=== PATIENT | female | born 1955 | race Caucasian/White ===

== ENCOUNTER → 2021-02-12 | Outpatient (CLI) | payer MEDICARE ==
[2021-02-12 11:46] LABS: HEMATOCRIT 43.1 % (36.0-47.0); HEMOGLOBIN 13.3 g/dl (12.0-15.5); MEAN CORPUSCULAR HEMOGLOBIN 28.2 pg (27.0-33.0); MEAN CORPUSCULAR HGB CONC 30.9 g/dl (32.0-36.5); MEAN CORPUSCULAR VOLUME 91.5 fl (80.0-96.0); PLATELET COUNT, AUTOMATED 322 10^3/uL (150-450); RED BLOOD COUNT 4.71 10^6/uL (4.00-5.40); WHITE BLOOD COUNT 8.3 10^3/uL (4.0-10.0)
[2021-02-12 12:19] LABS: HEMOGLOBIN A1c 5.4 %
[2021-02-12 12:50] LABS: ALBUMIN 3.6 GM/DL (3.2-5.2); ALT/SGPT 11 U/L (12-78); BILIRUBIN,TOTAL 0.5 MG/DL (0.2-1.0); BLOOD UREA NITROGEN 18 MG/DL (7-18); CALCIUM LEVEL 9.4 MG/DL (8.8-10.2); CARBON DIOXIDE LEVEL 28 MEQ/L (21-32); CHLORIDE LEVEL 109 MEQ/L (98-107); CHOLESTEROL LEVEL 227 MG/DL (<200); CHOLESTEROL RISK RATIO 3.661 (<5); CREATININE FOR GFR 0.93 MG/DL (0.55-1.30); GLOMERULAR FILTRATION RATE > 60.0 (>45); GLUCOSE, FASTING 95 MG/DL (70-100); HDL CHOLESTEROL 62 MG/DL (>40); LDL CHOLESTEROL 146 MG/DL (<100); NON-HDL-C 165 MG/DL; POTASSIUM SERUM 4.8 MEQ/L (3.5-5.1); SODIUM LEVEL 142 MEQ/L (136-145); TOTAL 25(OH) VITAMIN D 15.1 NG/ML (30.0-100.0); TOTAL PROTEIN 7.4 GM/DL (6.4-8.2); TRIGLYCERIDES LEVEL 96 MG/DL (<150)
== END ==
LOC: M LAB 10:40
PROVIDERS: ATTEND Family Medicine
DX: I10 Essential (primary) hypertension (principal); R53.83 Other fatigue; E03.9 Hypothyroidism, unspecified

== ENCOUNTER → 2021-03-04 | Outpatient (CLI) | payer MEDICARE ==
[~2021-03-04] MED LIST: ALPR0.5T3 PO; FLUO20CA22 PO; LOMO2.5T PO; VITA50005 PO
--- NOTE | 2021-03-04 08:18 | REP ---
INDICATION: EPIGASTRIC PAIN, MASS COMPARISON: None TECHNIQUE: Axial noncontrast images of the abdomen with coronal and sagittal reformations. This CT examination was performed using the following dose reduction techniques: Automated exposure control, adjustment of mA and/or kv according to the patient's size, and use of iterative reconstruction technique. FINDINGS: The lung bases demonstrate minimal scarring in the right middle lobe and left lower lobe. There is aneurysmal dilatation of the visualized descending thoracic aorta measuring up to 5 cm diameter at the diaphragmatic hiatus. Liver demonstrates few scattered hypodensities measuring up to 14 mm likely representing small cysts. Spleen, pancreas, gallbladder, bilateral adrenal glands and kidneys are essentially normal for noncontrast evaluation. Visualized portions of the enteric system are unremarkable. No ascites. No free air. No obvious adenopathy. The abdominal aorta demonstrates atherosclerotic changes without aneurysm. Surrounding musculoskeletal structures demonstrate age-related changes. IMPRESSION: 1. Thoracic aortic aneurysm to the level of the hiatus measuring 5 cm diameter. Contrast-enhanced CT of the chest is recommended to evaluate the entire thoracic aorta. 2. Few small hepatic hypodensities likely representing benign hepatic cysts. <Electronically signed by Davian Khan > 03/04/21 0815
== END ==
LOC: M RAD 07:30
PROVIDERS: ATTEND Family Medicine
DX: R10.13 Epigastric pain (principal); K76.89 Other specified diseases of liver; I70.0 Atherosclerosis of aorta; I71.2 Thoracic aortic aneurysm, without rupture

== ENCOUNTER → 2021-04-11 | Outpatient (CLI) | payer MEDICARE ==
[2021-04-11 16:36] LABS: BLOOD UREA NITROGEN 16 MG/DL (7-18); CREATININE FOR GFR 0.96 MG/DL (0.55-1.30); GLOMERULAR FILTRATION RATE > 60.0 (>45)
== END ==
LOC: M LAB 14:17
PROVIDERS: ATTEND Surgery Vascular Surgery
DX: I71.2 Thoracic aortic aneurysm, without rupture (principal)

== ENCOUNTER → 2021-07-25 | Outpatient (REF) | payer MEDICARE ==
[~2021-07-25] MED LIST changes: +ERGO500029 PO; -VITA50005 PO
[2021-07-25 17:18] LABS: APPEARANCE, URINE CLEAR (CLEAR); BACTERIA, URINE AUTO NEGATIVE (NEGATIVE); BILIRUBIN, URINE AUTO NEGATIVE (NEGATIVE); BLOOD, URINE BLOOD 1+ (NEGATIVE); COLOR, URINE YELLOW (YELLOW); GLUCOSE, URINE (UA) AUTO NEGATIVE (NEGATIVE); KETONE, URINE AUTO TRACE mg/dL (NEGATIVE); LEUKOCYTE ESTERASE, URINE AUTO NEGATIVE (NEGATIVE); MUCUS, URINE SMALL (NEGATIVE); NITRITE, URINE AUTO NEGATIVE (NEGATIVE); PROTEIN, URINE AUTO NEGATIVE (NEGATIVE); RBC, URINE AUTO 1 /HPF (0-3); SPECIFIC GRAVITY URINE AUTO 1.004 (1.002-1.035); SQUAMOUS EPITHELIAL CELL UR AU 1 /HPF (0-6); UROBILINOGEN, URINE AUTO 0.2 mg/dL (0.0-2.0); WBC, URINE AUTO 1 /HPF (0-3)
== END ==
LOC: M LAB REF 16:36
PROVIDERS: ATTEND Surgery Vascular Surgery
DX: R32 Unspecified urinary incontinence (principal)

== ENCOUNTER → 2021-09-03 | Outpatient (CLI) | payer MEDICARE ==
--- NOTE | 2021-09-03 16:21 | REP ---
INDICATION: THORACIC AA COMPARISON: None. TECHNIQUE: Standard helical technique without intravenous contrast FINDINGS: There is no mediastinal or hilar adenopathy. There are no pleural or pericardial effusions. A stent graft is seen in the descending aortic arch and descending thoracic aorta within aneurysmal dilatation. The maximal dimension of the descending thoracic aorta is approximately 6.4 cm. Since no intravenous contrast was administered I cannot comment on whether not there may be an endoleak. The imaged osseous structures are within normal limits. Evaluation of the lung sidhu shows no abnormal nodules, masses, or opacities. IMPRESSION: Thoracic aortic aneurysmal dilatation with stent graft placement as described above. If an endoleak is of clinical concern then a contrast-enhanced examination would be necessary. Since I have no priors for comparison I cannot comment on whether not this aneurysm is increased or decreased or has remained the same. <Electronically signed by Bakari Hall > 09/03/21 [id number]
--- NOTE | 2021-09-03 16:27 | REP ---
INDICATION: THORACIC AA. COMPARISON: None. TECHNIQUE: Standard helical technique without intravenous contrast FINDINGS: There is a suprarenal abdominal aortic aneurysm which begins proximal to the celiac axis and has a maximal AP dimension of 5.4 cm. This has a length of approximately 11 cm. The infrarenal abdominal aorta is seen with circumferential calcific atherosclerotic change. There is no para-aortic adenopathy. There is no abnormal para-aortic fluid or soft tissue density. In the posterior segment of the right lobe of the liver there is 1.6 cm sized cyst. In the anterior segment adjacent to the gallbladder fossa there is an additional cyst which measures 1 cm. The gallbladder, spleen, pancreas, adrenal glands, and kidneys are within normal limits. There is no evidence of a significant bowel or mesenteric abnormality on this limited exam. There is no free fluid or free air. There is no evidence of a mass or adenopathy. Bone window technique throughout the exam shows the osseous structures to be within normal limits for the patient's age. IMPRESSION: There is no evidence of acute disease. Abdominal aortic aneurysm as described above. Other findings as described above. <Electronically signed by Bakari Hall > 09/03/21 [id number]
== END ==
LOC: M RAD 15:43
PROVIDERS: ATTEND Surgery Vascular Surgery
DX: I71.2 Thoracic aortic aneurysm, without rupture (principal); K76.89 Other specified diseases of liver; I71.4 Abdominal aortic aneurysm, without rupture; Z95.828 Presence of other vascular implants and grafts

== ENCOUNTER → 2022-03-18 | Outpatient (CLI) | payer MEDICARE | LOC: M RAD 12:53 | PROVIDERS: ATTEND Surgery Vascular Surgery | DX: I71.2 Thoracic aortic aneurysm, without rupture (principal) ==

== ENCOUNTER 2022-05-30 20:19 | Observation (INO) | payer MEDICARE ==
[~2022-05-30] VITALS: Ht 170.2 cm; Wt 91.4 kg
[2022-05-30] MEDS ORDERED: ALPR0.25 PO (20:49)
[2022-05-30] MEDS ORDERED: ASPI81CH48 PO (20:49)
[2022-05-30] MEDS ORDERED: METO1TAB87 PO (20:49)
[2022-05-30] MEDS ORDERED: ATOR1TAB21 PO (20:49)
[2022-05-30] MEDS: METOPROLOL TART 25 MG TABLET PO SCH (21:00)
[2022-05-30 21:01] LABS: BASO # 0.1 10^3/uL (0.0-0.2); BASO % 1.1 % (0.0-1.0); EOS # 0.2 10^3/uL (0.0-0.5); EOS % 2.4 % (0.0-3.0); HEMATOCRIT 39.2 % (36.0-47.0); HEMOGLOBIN 12.6 g/dl (12.0-15.5); LYMPH # 3.2 10^3/uL (1.5-5.0); LYMPH % 37.5 % (24.0-44.0); MEAN CORPUSCULAR HEMOGLOBIN 28.2 pg (27.0-33.0); MEAN CORPUSCULAR HGB CONC 32.1 g/dl (32.0-36.5); MEAN CORPUSCULAR VOLUME 87.7 fl (80.0-96.0); MONO # 0.5 10^3/uL (0.0-0.8); MONO % 6.1 % (2.0-8.0); NEUTROPHILS # 4.5 10^3/uL (1.5-8.5); NEUTROPHILS % 52.5 % (36.0-66.0); PLATELET COUNT, AUTOMATED 263 10^3/uL (150-450); RED BLOOD COUNT 4.47 10^6/uL (4.00-5.40); WHITE BLOOD COUNT 8.5 10^3/uL (4.0-10.0)
[2022-05-30 21:13] LABS: INR 0.97; PROTHROMBIN TIME 13.3 SECONDS (12.7-14.5)
[2022-05-30 21:14] LABS: PARTIAL THROMBOPLASTIN TIME 35.8 SECONDS (25.9-37.0)
[2022-05-30 21:36] LABS: CALCIUM LEVEL 9.6 MG/DL (8.8-10.2); CREATININE FOR GFR 1.09 MG/DL (0.55-1.30)
[2022-05-30 21:40] LABS: CK-MB VALUE MASS 1.3 NG/ML (<3.6); MB/CK RELATIVE INDEX 1.37 (< OR =4)
[2022-05-30] MEDS ORDERED: ISOVUE-370 76% 100ML VIAL As Ordered ONE (22:15)
[2022-05-30 22:35] LABS: CK-MB VALUE MASS 1.2 NG/ML (<3.6); MB/CK RELATIVE INDEX 1.17 (< OR =4)
[2022-05-30 23:41] LABS: RSV AMPLIFICATION NEGATIVE (NEGATIVE)
[2022-05-30] MEDS ORDERED: ASPIRIN 81 MG CHEW TABLET PO ONE (23:55)
[2022-05-31] MEDS ORDERED: ADVI200T17 PO (00:33)
[2022-05-31] MEDS ORDERED: HOME MED LIST COMPLETE! XX SCH (00:35)
[2022-05-31] MEDS ORDERED: ATORVASTATIN 20 MG TAB PO ONE (04:00)
[2022-05-31] MEDS ORDERED: ASPIRIN 81 MG CHEW TABLET PO SCH (09:00)
[2022-05-31] MEDS ORDERED: ATORVASTATIN 20 MG TAB PO SCH ×2 (09:00→21:00)
[2022-05-31] MEDS: ASPIRIN 81 MG CHEW TABLET PO SCH (09:15)
[2022-05-31] MEDS: METOPROLOL TART 25 MG TABLET PO SCH ×2 (09:15→22:18)
[2022-05-31 12:05] VITALS: BP 142/84
[2022-05-31] MEDS ORDERED: FUROSEMIDE 40MG/4ML VIAL (J1940) IV ONE (17:40)
[2022-05-31] MEDS ORDERED: PROHANCE 279.3MG/ML 5ML VIAL As Ordered ONE (18:33)
[2022-05-31 19:49] VITALS: BP 115/71
[2022-05-31] MEDS: ALPRAZolam 0.25 MG TAB PO SCH (22:19)
[2022-06-01] MEDS ORDERED: ONDANSETRON 4MG ORAL DISINTEGRATING TAB PO PRN (02:25)
[2022-06-01 04:09] VITALS: BP 139/82
[2022-06-01 07:31] LABS: HEMOGLOBIN 12.3 g/dl (12.0-15.5); MEAN CORPUSCULAR HEMOGLOBIN 27.7 pg (27.0-33.0); MEAN CORPUSCULAR HGB CONC 31.5 g/dl (32.0-36.5); MEAN CORPUSCULAR VOLUME 87.8 fl (80.0-96.0); PLATELET COUNT, AUTOMATED 229 10^3/uL (150-450); RED BLOOD COUNT 4.44 10^6/uL (4.00-5.40); WHITE BLOOD COUNT 7.9 10^3/uL (4.0-10.0)
[2022-06-01 08:00] LABS: ALBUMIN 3.6 GM/DL (3.2-5.2); BILIRUBIN,TOTAL 0.7 MG/DL (0.2-1.0); CALCIUM LEVEL 9.6 MG/DL (8.8-10.2); CREATININE FOR GFR 1.09 MG/DL (0.55-1.30); POTASSIUM SERUM 3.9 MEQ/L (3.5-5.1); TOTAL PROTEIN 6.9 GM/DL (6.4-8.2)
[2022-06-01 08:51] VITALS: BP_SYST 119; BP_SYST 130; BP_SYST 139; BP_DIAS 69; BP_DIAS 75; BP_DIAS 85
[2022-06-01] MEDS: ASPIRIN 81 MG CHEW TABLET PO SCH (10:01)
[2022-06-01 10:03] VITALS: BP 156/78
[2022-06-01] MEDS: METOPROLOL TART 25 MG TABLET PO SCH (10:03)
[2022-06-01] MEDS: ALPRAZolam 0.25 MG TAB PO SCH (10:03)
[2022-06-10] MEDS ORDERED: ACET325C5 PO (09:56)
[2022-06-10] MEDS ORDERED: TREL1AER PO (10:21)
== END 2022-06-01 18:00 | disposition home or self-care (01) ==
LOC: M ED 20:19 → M ED INP 20:20 → ENRESERV 05-31 08:15 → M 4MAIN 05-31 12:02
PROVIDERS: ADMIT Internal Medicine; ATTEND Internal Medicine
DX: H53.9 Unspecified visual disturbance (principal); G45.9 Transient cerebral ischemic attack, unspecified; I16.0 Hypertensive urgency; R26.89 Other abnormalities of gait and mobility; R00.2 Palpitations; I10 Essential (primary) hypertension; I73.9 Peripheral vascular disease, unspecified; J44.9 Chronic obstructive pulmonary disease, unspecified; F41.9 Anxiety disorder, unspecified; Z79.899 Other long term (current) drug therapy
CPT/HCPCS: 36415; 70450; 70544; 70551; 70552; 71045; 71275; 74174; 80048; 80053; 82550; 82553; 83880; 84484; 85025; 85027; 85610; 85730; 87631; 93005; 93041; 93880; 94760; 96374; 97161; 97530; 99285; A9576; G0378; J1940; Q9967

== ENCOUNTER → 2022-08-20 | Outpatient (CLI) | payer MEDICARE ==
[~2022-08-20] MED LIST changes: +ACET325C5 PO; +ADVI200T17 PO; +ALPR0.25 PO; +ASPI81CH48 PO; +ATOR1TAB21 PO; +METO1TAB87 PO; +TREL1AER PO
[2022-08-20 14:49] LABS: HEMATOCRIT 39.4 % (36.0-47.0); MEAN CORPUSCULAR HGB CONC 30.5 g/dl (32.0-36.5); MEAN CORPUSCULAR VOLUME 92.1 fl (80.0-96.0); PLATELET COUNT, AUTOMATED 277 10^3/uL (150-450); RED BLOOD COUNT 4.28 10^6/uL (4.00-5.40); WHITE BLOOD COUNT 7.5 10^3/uL (4.0-10.0)
[2022-08-20 15:08] LABS: HEMOGLOBIN A1c 5.9 %
[2022-08-20 16:00] LABS: ALBUMIN 3.5 GM/DL (3.2-5.2); BILIRUBIN,TOTAL 0.6 MG/DL (0.2-1.0); CALCIUM LEVEL 9.2 MG/DL (8.8-10.2); CHOLESTEROL RISK RATIO 2.634 (<5); CREATININE FOR GFR 0.99 MG/DL (0.55-1.30); GLOMERULAR FILTRATION RATE 59.2 (>45); POTASSIUM SERUM 4.7 MEQ/L (3.5-5.1); THYROID STIMULATING HORMONE 1.49 uIU/ML (0.358-3.740); TOTAL 25(OH) VITAMIN D 49.7 NG/ML (30.0-100.0); TOTAL PROTEIN 6.9 GM/DL (6.4-8.2)
== END ==
LOC: M EKG 12:49
PROVIDERS: ATTEND Family Medicine
DX: D64.9 Anemia, unspecified (principal); J44.9 Chronic obstructive pulmonary disease, unspecified; I10 Essential (primary) hypertension; Z79.899 Other long term (current) drug therapy

== ENCOUNTER → 2023-02-24 | Outpatient (CLI) | payer MEDICARE ==
[2023-02-24 16:02] LABS: HEMATOCRIT 41.6 % (36.0-47.0); HEMOGLOBIN 12.9 g/dl (12.0-15.5); MEAN CORPUSCULAR HEMOGLOBIN 27.9 pg (27.0-33.0); PLATELET COUNT, AUTOMATED 199 10^3/uL (150-450); RED BLOOD COUNT 4.62 10^6/uL (4.00-5.40); WHITE BLOOD COUNT 7.9 10^3/uL (4.0-10.0)
[2023-02-24 16:30] LABS: ALBUMIN 3.5 G/DL (3.2-5.2); ALKALINE PHOSPHATASE 98 U/L (46-116); ALT/SGPT 9 U/L (7.0-40); AST/SGOT 21 U/L (<34); BILIRUBIN,TOTAL 0.7 MG/DL (0.3-1.2); BLOOD UREA NITROGEN 16 MG/DL (9-23); CALCIUM LEVEL 8.8 MG/DL (8.3-10.6); CARBON DIOXIDE LEVEL 26 MMOL/L (20-31); CHLORIDE LEVEL 108 MMOL/L (98-107); CHOLESTEROL LEVEL 139 MG/DL (<200); CREATININE FOR GFR 0.97 MG/DL (0.55-1.30); GLOMERULAR FILTRATION RATE > 60.0 (>45); GLUCOSE, FASTING 75 MG/DL (74-106); HDL CHOLESTEROL 53.4 MG/DL (>40); LDL CHOLESTEROL 68.8 MG/DL (<100); NON-HDL-C 85.6 MG/DL; SODIUM LEVEL 143 MMOL/L (136-145); THYROID STIMULATING HORMONE 1.766 uIU/ML (0.55-4.78); TOTAL PROTEIN 6.8 G/DL (5.7-8.2); TRIGLYCERIDES LEVEL 84 MG/DL (<150)
[2023-02-24 16:31] LABS: TOTAL 25(OH) VITAMIN D 34.6 NG/ML (20.0-100.0)
[2023-02-24 16:42] LABS: HEMOGLOBIN A1c 5.5 % (4.0-6.0)
== END ==
LOC: M RAD 13:54
PROVIDERS: ATTEND Family Medicine
DX: I10 Essential (primary) hypertension (principal); R53.83 Other fatigue; I48.91 Unspecified atrial fibrillation

== ENCOUNTER → 2023-06-18 | Outpatient (CLI) | payer MEDICARE | LOC: M RAD 10:07 | PROVIDERS: ATTEND Physician Assistant | DX: Z86.79 Personal history of other diseases of the circulatory system (principal); Z98.890 Other specified postprocedural states; I71.40 Abdominal aortic aneurysm, without rupture, unspecified; I74.09 Other arterial embolism and thrombosis of abdominal aorta ==

== ENCOUNTER → 2023-07-04 | Outpatient (CLI) | payer MEDICARE ==
[2023-07-04 12:59] LABS: BLOOD UREA NITROGEN 16 MG/DL (9-23); CREATININE FOR GFR 0.94 MG/DL (0.55-1.30); GLOMERULAR FILTRATION RATE > 60.0 (>39)
== END ==
LOC: M LAB 11:58
PROVIDERS: ATTEND Physician Assistant
DX: I71.20 Thoracic aortic aneurysm, without rupture, unspecified (principal)

== ENCOUNTER → 2023-07-10 | Outpatient (CLI) | payer MEDICARE ==
[~2023-07-10] MED LIST changes: +ISOVUE-370 76% 100ML VIAL As Ordered ONE
== END ==
LOC: M RAD 15:31
PROVIDERS: ATTEND Physician Assistant
DX: I71.20 Thoracic aortic aneurysm, without rupture, unspecified (principal)
CPT/HCPCS: 71260; Q9967

== ENCOUNTER 2023-08-10 07:43 | Day surgery (SDC) | payer MEDICARE ==
[~2023-08-10] VITALS: Ht 167.6 cm; Wt 96.6 kg
[~2023-08-10 07:43] MED LIST changes: -ISOVUE-370 76% 100ML VIAL As Ordered ONE; +NS 1,000 ML IV ONE
[2023-08-10] MEDS ORDERED: LIDOCAINE 2% 100MG/5ML SDV (FOR ANES.) As Ordered ONE (08:11)
[2023-08-10] MEDS ORDERED: propofoL 200 MG/20 ML VIAL As Ordered ONE (08:11)
[2023-08-10 09:31] VITALS: TEMP 98
[2023-08-10 09:48] VITALS: BP 132/97; O2SAT 99
== END 2023-08-10 10:00 | disposition home or self-care (01) ==
LOC: M OPP 07:43
PROVIDERS: ATTEND Internal Medicine Gastroenterology
DX: Z12.11 Encounter for screening for malignant neoplasm of colon (principal); K64.0 First degree hemorrhoids; K57.30 Diverticulosis of large intestine without perforation or abscess without bleeding; Z87.891 Personal history of nicotine dependence; I48.91 Unspecified atrial fibrillation; Z86.73 Personal history of transient ischemic attack (TIA), and cerebral infarction without residual deficits; Z79.02 Long term (current) use of antithrombotics/antiplatelets; Z79.52 Long term (current) use of systemic steroids; Z79.82 Long term (current) use of aspirin; Z79.899 Other long term (current) drug therapy

== ENCOUNTER 2024-01-03 13:05 | Emergency (ER) | payer MEDICARE ==
[~2024-01-03] VITALS: Ht 172.7 cm; Wt 97.2 kg
[~2024-01-03 13:05] MED LIST changes: -NS 1,000 ML IV ONE
[2024-01-03] MEDS: METOPROLOL 5 MG/5 ML VIAL IV PRN (14:31)
[2024-01-03] MEDS: METOPROLOL TART 25 MG TABLET PO ONE (14:34)
[2024-01-03 14:58] VITALS: BP 143/68
[2024-01-03 15:37] LABS: BASO # 0.1 10^3/uL (0.0-0.2); BASO % 1.1 % (0.0-1.0); EOS # 0.2 10^3/uL (0.0-0.5); HEMATOCRIT 36.7 % (36.0-47.0); HEMOGLOBIN 11.7 g/dl (12.0-15.5); LYMPH # 2.1 10^3/uL (1.5-5.0); LYMPH % 26.2 % (24.0-44.0); MEAN CORPUSCULAR HEMOGLOBIN 28.5 pg (27.0-33.0); MEAN CORPUSCULAR HGB CONC 31.9 g/dl (32.0-36.5); MEAN CORPUSCULAR VOLUME 89.3 fl (80.0-96.0); MONO # 0.6 10^3/uL (0.0-0.8); MONO % 7.3 % (2.0-8.0); NEUTROPHILS # 5.1 10^3/uL (1.5-8.5); NEUTROPHILS % 63.2 % (36.0-66.0); PLATELET COUNT, AUTOMATED 224 10^3/uL (150-450); RED BLOOD COUNT 4.11 10^6/uL (4.00-5.40); WHITE BLOOD COUNT 8.1 10^3/uL (4.0-10.0)
[2024-01-03 15:55] LABS: INR 0.99; PARTIAL THROMBOPLASTIN TIME 35.3 SECONDS (24.8-34.2); PROTHROMBIN TIME 12.8 SECONDS (12.5-14.5)
[2024-01-03 16:09] LABS: LIPASE 30 U/L (12-53)
[2024-01-03 16:11] LABS: ALBUMIN 3.3 G/DL (3.2-5.2); ALKALINE PHOSPHATASE 105 U/L (46-116); ALT/SGPT 9 U/L (7.0-40); AST/SGOT 17 U/L (<34); BILIRUBIN,DIRECT 0.1 MG/DL (<0.4); BILIRUBIN,TOTAL 0.4 MG/DL (0.3-1.2); BLOOD UREA NITROGEN 23 MG/DL (9-23); CALCIUM LEVEL 8.2 MG/DL (8.3-10.6); CARBON DIOXIDE LEVEL 28 MMOL/L (20-31); CHLORIDE LEVEL 109 MMOL/L (98-107); CK-MB VALUE MASS < 1.0 NG/ML (<3.6); CREATININE FOR GFR 0.95 MG/DL (0.55-1.30); GLOMERULAR FILTRATION RATE > 60.0 (>39); GLUCOSE, FASTING 78 MG/DL (74-106); MAGNESIUM LEVEL 1.8 MG/DL (1.8-2.4); POTASSIUM SERUM 4.6 MMOL/L (3.5-5.1); SODIUM LEVEL 141 MMOL/L (136-145)
[2024-01-03 16:15] LABS: FREE T4 1.09 NG/DL (0.89-1.76)
[2024-01-03 16:17] LABS: CPK CREATINE PHOSPHOKINASE 49 U/L (34-145); MB/CK RELATIVE INDEX 2.04 (< OR =4)
[2024-01-03] MEDS ORDERED: METO25TA4 PO (16:51)
[2024-01-03] MEDS ORDERED: ELIQ5TAB PO (16:51)
[2024-01-03] MEDS: APIXABAN 5 MG TAB (ELIQUIS) PO ONE (17:07)
[2024-01-03 17:11] VITALS: BP 143/85; TEMP 97.2; O2SAT 98
== END 2024-01-03 17:10 | disposition home or self-care (01) ==
LOC: M ED 13:05
DX: I48.91 Unspecified atrial fibrillation (principal); I10 Essential (primary) hypertension; J45.909 Unspecified asthma, uncomplicated; I71.40 Abdominal aortic aneurysm, without rupture, unspecified; Z86.73 Personal history of transient ischemic attack (TIA), and cerebral infarction without residual deficits; Z79.82 Long term (current) use of aspirin; Z79.899 Other long term (current) drug therapy

== ENCOUNTER → 2024-02-09 | Outpatient (CLI) | payer MEDICARE ==
[~2024-02-09] MED LIST changes: +ELIQ5TAB PO; +METO25TA4 PO
[2024-02-09 12:55] LABS: BASO # 0.1 10^3/uL (0.0-0.2); BASO % 1.3 % (0.0-1.0); EOS # 0.1 10^3/uL (0.0-0.5); EOS % 1.9 % (0.0-3.0); HEMATOCRIT 39.9 % (36.0-47.0); HEMOGLOBIN 12.7 g/dl (12.0-15.5); LYMPH # 1.8 10^3/uL (1.5-5.0); LYMPH % 23.7 % (24.0-44.0); MEAN CORPUSCULAR HEMOGLOBIN 28.3 pg (27.0-33.0); MEAN CORPUSCULAR HGB CONC 31.8 g/dl (32.0-36.5); MEAN CORPUSCULAR VOLUME 89.1 fl (80.0-96.0); MONO # 0.4 10^3/uL (0.0-0.8); MONO % 5.4 % (2.0-8.0); NEUTROPHILS % 67.4 % (36.0-66.0); PLATELET COUNT, AUTOMATED 252 10^3/uL (150-450); RED BLOOD COUNT 4.48 10^6/uL (4.00-5.40); WHITE BLOOD COUNT 7.4 10^3/uL (4.0-10.0)
[2024-02-09 13:24] LABS: CALCIUM LEVEL 8.8 MG/DL (8.3-10.6); CREATININE FOR GFR 0.99 MG/DL (0.55-1.30); POTASSIUM SERUM 5.2 MMOL/L (3.5-5.1)
== END ==
LOC: M LAB 11:42
PROVIDERS: ATTEND Physician Assistant
DX: R06.09 Other forms of dyspnea (principal)

== ENCOUNTER → 2024-05-12 | Outpatient (CLI) | payer MEDICARE ==
[~2024-05-12] MED LIST changes: +FLUO-365 PO; -FLUO20CA22 PO
[2024-05-12 13:23] LABS: BASO # 0.1 10^3/uL (0.0-0.2); BASO % 1.1 % (0.0-1.0); EOS # 0.2 10^3/uL (0.0-0.5); EOS % 2.5 % (0.0-3.0); HEMATOCRIT 38.7 % (36.0-47.0); HEMOGLOBIN 12.1 g/dl (12.0-15.5); LYMPH # 1.8 10^3/uL (1.5-5.0); LYMPH % 22.9 % (24.0-44.0); MEAN CORPUSCULAR HEMOGLOBIN 28.3 pg (27.0-33.0); MEAN CORPUSCULAR HGB CONC 31.3 g/dl (32.0-36.5); MEAN CORPUSCULAR VOLUME 90.4 fl (80.0-96.0); MONO # 0.5 10^3/uL (0.0-0.8); MONO % 5.7 % (2.0-8.0); NEUTROPHILS # 5.4 10^3/uL (1.5-8.5); NEUTROPHILS % 67.5 % (36.0-66.0); PLATELET COUNT, AUTOMATED 321 10^3/uL (150-450); RED BLOOD COUNT 4.28 10^6/uL (4.00-5.40)
[2024-05-12 13:54] LABS: ALBUMIN 3.6 G/DL (3.2-5.2); ALKALINE PHOSPHATASE 120 U/L (46-116); ALT/SGPT 10 U/L (7.0-40); AST/SGOT 14 U/L (<34); BILIRUBIN,TOTAL 0.7 MG/DL (0.3-1.2); BLOOD UREA NITROGEN 14 MG/DL (9-23); CALCIUM LEVEL 9.7 MG/DL (8.3-10.6); CARBON DIOXIDE LEVEL 29 MMOL/L (20-31); CHLORIDE LEVEL 108 MMOL/L (98-107); GLOMERULAR FILTRATION RATE > 60.0 (>39); GLUCOSE, FASTING 94 MG/DL (74-106); POTASSIUM SERUM 4.4 MMOL/L (3.5-5.1); SODIUM LEVEL 143 MMOL/L (136-145); TOTAL PROTEIN 6.8 G/DL (5.7-8.2)
[2024-05-12 13:56] LABS: FREE T4 1.22 NG/DL (0.89-1.76); THYROID STIMULATING HORMONE 2.389 uIU/ML (0.55-4.78)
== END ==
LOC: M LAB 12:42
PROVIDERS: ATTEND Internal Medicine Pulmonary Disease
DX: R06.00 Dyspnea, unspecified (principal); R60.0 Localized edema

== ENCOUNTER → 2024-05-16 | Outpatient (CLI) | payer MEDICARE ==
[~2024-05-16] MED LIST changes: +ISOVUE-370 76% 100ML VIAL As Ordered ONE
== END ==
LOC: M PLAIMG 09:21 → M RAD 09:21
PROVIDERS: ATTEND Internal Medicine Pulmonary Disease
DX: R06.00 Dyspnea, unspecified (principal); R60.0 Localized edema; R09.02 Hypoxemia; J98.11 Atelectasis; I51.7 Cardiomegaly; I25.10 Atherosclerotic heart disease of native coronary artery without angina pectoris; I74.11 Embolism and thrombosis of thoracic aorta; I71.23 Aneurysm of the descending thoracic aorta, without rupture
CPT/HCPCS: 71275; Q9967

== ENCOUNTER → 2024-06-29 | Outpatient (CLI) | payer MEDICARE ==
[~2024-06-29] MED LIST changes: -ISOVUE-370 76% 100ML VIAL As Ordered ONE
== END ==
LOC: M RAD 11:51
PROVIDERS: ATTEND Family Medicine
DX: M16.12 Unilateral primary osteoarthritis, left hip (principal)

== ENCOUNTER → 2024-07-27 | Outpatient (CLI) | payer MEDICARE | LOC: M RAD 07:29 | PROVIDERS: ATTEND Surgery Vascular Surgery | DX: I71.40 Abdominal aortic aneurysm, without rupture, unspecified (principal) ==

== ENCOUNTER 2024-11-25 15:18 | Inpatient (IN) | payer MEDICARE ==
[~2024-11-25] VITALS: Ht 172.7 cm; Wt 97.3 kg
[2024-11-25] MEDS ORDERED: METO1TAB87 PO (15:52)
[2024-11-25] MEDS ORDERED: AMLO1TAB24 PO (15:52)
[2024-11-25] MEDS ORDERED: AZIT-12 PO (15:52)
[2024-11-25] MEDS ORDERED: METOPROLOL TART 25 MG TABLET PO ONE (16:10)
[2024-11-25] MEDS: METOPROLOL 5 MG/5 ML VIAL IV SCH (16:10)
[2024-11-25 16:35] LABS: BASO # 0.1 10^3/uL (0.0-0.2); BASO % 0.9 % (0.0-1.0); EOS % 0.3 % (0.0-3.0); HEMATOCRIT 41.5 % (36.0-47.0); HEMOGLOBIN 12.9 g/dl (12.0-15.5); LYMPH # 1.5 10^3/uL (1.5-5.0); LYMPH % 20.2 % (24.0-44.0); MEAN CORPUSCULAR HGB CONC 31.1 g/dl (32.0-36.5); MONO # 0.7 10^3/uL (0.0-0.8); NEUTROPHILS # 5.1 10^3/uL (1.5-8.5); NEUTROPHILS % 68.3 % (36.0-66.0); PLATELET COUNT, AUTOMATED 217 10^3/uL (150-450); RED BLOOD COUNT 4.61 10^6/uL (4.00-5.40); WHITE BLOOD COUNT 7.4 10^3/uL (4.0-10.0)
[2024-11-25] MEDS: DIGOXIN INJ 0.5 MG/2 ML AMP IV ONE (17:06)
[2024-11-25 18:17] LABS: CALCIUM LEVEL 8.9 MG/DL (8.3-10.6); CREATININE FOR GFR 0.99 MG/DL (0.55-1.30); GLOMERULAR FILTRATION RATE 58.9 (>39); POTASSIUM SERUM 4.9 MMOL/L (3.5-5.1); THYROID STIMULATING HORMONE 1.298 uIU/ML (0.55-4.78)
[2024-11-25] MEDS ORDERED: OMEP-173 PO (18:19)
[2024-11-25] MEDS ORDERED: HOME MED LIST COMPLETE! XX SCH (18:20)
[2024-11-25] MEDS ORDERED: ACETAMINOPHEN 325 MG TAB PO PRN (18:50)
[2024-11-25] MEDS ORDERED: LEVALBUTEROL 1.25MG 0.5ML CONCENTRATE NEB NEB PRN (19:25)
[2024-11-25] MEDS: DIGOXIN INJ 0.5 MG/2 ML AMP IV STA (19:45)
[2024-11-25] MEDS: METOPROLOL TART 25 MG TABLET PO SCH (19:45)
[2024-11-25 20:45] LABS: INR 0.96; PROTHROMBIN TIME 13.1 SECONDS (12.5-14.5)
[2024-11-25 20:50] LABS: MAGNESIUM LEVEL 1.8 MG/DL (1.8-2.4); PHOSPHORUS LEVEL 3.7 MG/DL (2.4-5.1)
[2024-11-25] MEDS ORDERED: amLODIPine 5 MG TAB PO SCH (21:00)
[2024-11-25] MEDS: REMDESIVIR 200 MG in NS 250 ML IV ONE (21:19)
[2024-11-25] MEDS: OMEPRAZOLE 20MG CAP PO SCH (21:51)
[2024-11-25 22:22] LABS: KETONE, URINE AUTO RFX TRACE mg/dL (NEGATIVE); MUCUS, URINE RFX SMALL (NEGATIVE); RBC, URINE AUTO RFX 4 /HPF (0-3); SQUAM EPITHELIAL CELL UR AURFX 7 /HPF (0-6)
[2024-11-25 22:48] VITALS: BP 143/73; TEMP 97.9; O2SAT 94
[2024-11-25 23:12] LABS: LEUKOCYTE ESTERASE UR AUTO RFX 1+ (NEGATIVE); NITRITE, URINE AUTO RFX POSITIVE (NEGATIVE); WBC, URINE AUTO RFX 39 /HPF (0-3)
[2024-11-25 23:58] VITALS: BP 125/54; TEMP 97.6; O2SAT 95
[2024-11-26 04:44] VITALS: BP 126/61; TEMP 98.3; O2SAT 100
[2024-11-26] MEDS: CEPACOL LOZENGE PO PRN (05:03)
[2024-11-26 05:56] LABS: HEMATOCRIT 36.9 % (36.0-47.0); HEMOGLOBIN 11.6 g/dl (12.0-15.5); MEAN CORPUSCULAR HEMOGLOBIN 27.8 pg (27.0-33.0); MEAN CORPUSCULAR HGB CONC 31.4 g/dl (32.0-36.5); MEAN CORPUSCULAR VOLUME 88.3 fl (80.0-96.0); PLATELET COUNT, AUTOMATED 203 10^3/uL (150-450); RED BLOOD COUNT 4.18 10^6/uL (4.00-5.40); WHITE BLOOD COUNT 7.2 10^3/uL (4.0-10.0)
[2024-11-26 06:29] LABS: ALBUMIN 3.5 G/DL (3.2-5.2); ALKALINE PHOSPHATASE 105 U/L (35-104); ALT/SGPT 13 U/L (7.0-40); AST/SGOT 37 U/L (<34); BILIRUBIN,TOTAL 0.5 MG/DL (0.3-1.2); BLOOD UREA NITROGEN 18 MG/DL (9-23); CALCIUM LEVEL 8.9 MG/DL (8.3-10.6); CARBON DIOXIDE LEVEL 28 MMOL/L (20-31); CHLORIDE LEVEL 101 MMOL/L (98-107); CREATININE FOR GFR 0.96 MG/DL (0.55-1.30); GLOMERULAR FILTRATION RATE > 60.0 (>39); GLUCOSE, FASTING 94 MG/DL (74-106); POTASSIUM SERUM 4.1 MMOL/L (3.5-5.1); SODIUM LEVEL 141 MMOL/L (136-145); TOTAL PROTEIN 7.2 G/DL (5.7-8.2)
[2024-11-26 07:58] VITALS: BP 127/66; TEMP 99.3; O2SAT 98
[2024-11-26] MEDS: AZITHROMYCIN 250MG TABLET PO SCH (09:25)
[2024-11-26] MEDS: ASPIRIN 81MG CHEW TABLET PO SCH (09:25)
[2024-11-26] MEDS: CEFDINIR 300 MG CAP (OMNICEF) PO SCH (09:25)
[2024-11-26] MEDS: ATORVASTATIN 20 MG TAB PO SCH (09:25)
[2024-11-26 12:08] VITALS: BP 111/65; TEMP 97.4; O2SAT 99
[2024-11-26 16:00] VITALS: BP 115/64; TEMP 97.6; O2SAT 99
[2024-11-26 19:26] VITALS: BP 144/68; TEMP 97.9; O2SAT 99
[2024-11-26] MEDS: REMDESIVIR 100 MG in NS 100 ML IV SCH (20:09)
[2024-11-26] MEDS: METOPROLOL TART 25 MG TABLET PO SCH (20:09)
[2024-11-26 23:01] VITALS: BP 124/71; TEMP 98; O2SAT 98
[2024-11-27] VITALS (12 sets, daily range): BP systolic 108–161; BP diastolic 66–93; TEMP 96.6–98.5; O2SAT 96–100
[2024-11-27 05:26] LABS: HEMATOCRIT 34.8 % (36.0-47.0); HEMOGLOBIN 10.9 g/dl (12.0-15.5); MEAN CORPUSCULAR HEMOGLOBIN 27.5 pg (27.0-33.0); MEAN CORPUSCULAR HGB CONC 31.3 g/dl (32.0-36.5); MEAN CORPUSCULAR VOLUME 87.9 fl (80.0-96.0); PLATELET COUNT, AUTOMATED 191 10^3/uL (150-450); RED BLOOD COUNT 3.96 10^6/uL (4.00-5.40); WHITE BLOOD COUNT 5.5 10^3/uL (4.0-10.0)
[2024-11-27] MEDS: METOPROLOL 5 MG/5 ML VIAL IV SCH (05:44)
[2024-11-27 05:48] LABS: ALBUMIN 3.2 G/DL (3.2-5.2); ALKALINE PHOSPHATASE 91 U/L (35-104); ALT/SGPT 12 U/L (7.0-40); AST/SGOT 34 U/L (<34); BILIRUBIN,TOTAL 0.4 MG/DL (0.3-1.2); BLOOD UREA NITROGEN 21 MG/DL (9-23); CALCIUM LEVEL 8.6 MG/DL (8.3-10.6); CARBON DIOXIDE LEVEL 26 MMOL/L (20-31); CHLORIDE LEVEL 105 MMOL/L (98-107); CREATININE FOR GFR 0.93 MG/DL (0.55-1.30); GLOMERULAR FILTRATION RATE > 60.0 (>39); GLUCOSE, FASTING 85 MG/DL (74-106); SODIUM LEVEL 143 MMOL/L (136-145); TOTAL PROTEIN 6.5 G/DL (5.7-8.2)
[2024-11-27 07:13] LABS: MAGNESIUM LEVEL 1.7 MG/DL (1.8-2.4)
[2024-11-27] MEDS: MAGNESIUM OXIDE 400MG TAB (MAG-OX) PO SCH (08:28)
[2024-11-27] MEDS: DIGOXIN INJ 0.5 MG/2 ML AMP IV ONE (08:28)
[2024-11-27] MEDS: MAG SULF 1GM/100ML (MAG RUN) 1 GM in IV 1 EA IV SCH (08:28)
[2024-11-27] MEDS: DIGOXIN 0.25 MG TAB PO ONE ×2 (14:27→21:05)
[2024-11-27] MEDS: LEVALBUTEROL HFA 45MCG/ACT 15GM INHALER INH PRN (17:07)
[2024-11-27] MEDS: ALPRAZolam 0.25 MG TAB PO PRN (21:06)
[2024-11-28 03:45] VITALS: BP 118/68; TEMP 98.3; O2SAT 99
[2024-11-28 07:32] VITALS: BP 119/79; TEMP 97; O2SAT 99
[2024-11-28 08:40] LABS: HEMATOCRIT 36.6 % (36.0-47.0); HEMOGLOBIN 11.5 g/dl (12.0-15.5); MEAN CORPUSCULAR HGB CONC 31.4 g/dl (32.0-36.5); MEAN CORPUSCULAR VOLUME 89.1 fl (80.0-96.0); PLATELET COUNT, AUTOMATED 201 10^3/uL (150-450); RED BLOOD COUNT 4.11 10^6/uL (4.00-5.40); WHITE BLOOD COUNT 6.5 10^3/uL (4.0-10.0)
[2024-11-28] MEDS ORDERED: DIGOXIN 0.125 MG TAB PO SCH (09:00)
[2024-11-28 09:03] LABS: ALBUMIN 3.1 G/DL (3.2-5.2); ALKALINE PHOSPHATASE 87 U/L (35-104); ALT/SGPT 13 U/L (7.0-40); AST/SGOT 28 U/L (<34); BILIRUBIN,TOTAL 0.4 MG/DL (0.3-1.2); BLOOD UREA NITROGEN 21 MG/DL (9-23); CALCIUM LEVEL 8.4 MG/DL (8.3-10.6); CARBON DIOXIDE LEVEL 29 MMOL/L (20-31); CHLORIDE LEVEL 105 MMOL/L (98-107); CREATININE FOR GFR 0.81 MG/DL (0.55-1.30); GLOMERULAR FILTRATION RATE > 60.0 (>39); GLUCOSE, FASTING 94 MG/DL (74-106); POTASSIUM SERUM 4.4 MMOL/L (3.5-5.1); SODIUM LEVEL 143 MMOL/L (136-145); TOTAL PROTEIN 6.2 G/DL (5.7-8.2)
[2024-11-28 09:11] LABS: DIGOXIN LEVEL 2.6 NG/ML (0.8-2.0)
[2024-11-28 09:19] VITALS: BP 119/79
[2024-11-28 12:13] VITALS: BP 128/63; TEMP 96.8; O2SAT 96
[2024-11-28] MEDS ORDERED: MAGN400T2 PO (12:48)
[2024-11-28] MEDS ORDERED: CEFD300CAP PO (12:48)
[2024-11-28] MEDS ORDERED: METO1TAB87 PO (12:48)
[2024-11-28] MEDS ORDERED: DIGO0.123 PO (12:50)
== END 2024-11-28 14:17 | disposition home or self-care (01) | DRG 308 ==
LOC: M ED 15:18 → M ED INP 18:49 → M PCU 22:44
PROVIDERS: ADMIT Internal Medicine; ATTEND Internal Medicine
PROC: XW033E5 Introduction of Remdesivir Anti-infective into Peripheral Vein, Percutaneous Approach, New Technology Group 5 (ICD-10-PCS; principal; 2024-11-25)
DX: I48.0 Paroxysmal atrial fibrillation (principal); U07.1 COVID-19; J96.11 Chronic respiratory failure with hypoxia; N39.0 Urinary tract infection, site not specified; I10 Essential (primary) hypertension; G93.89 Other specified disorders of brain; I73.9 Peripheral vascular disease, unspecified; F41.9 Anxiety disorder, unspecified; I95.9 Hypotension, unspecified; B96.20 Unspecified Escherichia coli [E. coli] as the cause of diseases classified elsewhere; K21.9 Gastro-esophageal reflux disease without esophagitis; E83.42 Hypomagnesemia; Z79.82 Long term (current) use of aspirin; Z79.2 Long term (current) use of antibiotics; Z79.899 Other long term (current) drug therapy; Z87.891 Personal history of nicotine dependence; Z99.81 Dependence on supplemental oxygen; Z66 Do not resuscitate

== ENCOUNTER 2025-06-02 15:21 | Emergency (ER) | payer MEDICARE ==
[~2025-06-02] VITALS: Ht 172.7 cm; Wt 87.6 kg
[~2025-06-02 15:21] MED LIST changes: +AMLO1TAB24 PO; +AZIT-12 PO; +CEFD300CAP PO; +DIGO0.123 PO; +MAGN400T2 PO; +OMEP-173 PO
[2025-06-02] MEDS ORDERED: BUDE10.7 (15:41)
[2025-06-02] MEDS ORDERED: ELIQ5TAB PO (15:41)
[2025-06-02] MEDS ORDERED: METO25TA4 PO (16:57)
[2025-06-02] MEDS ORDERED: RA M10TA PO (17:00)
[2025-06-02] MEDS ORDERED: RA N1TAB PO (17:00)
[2025-06-02 17:01] LABS: BASO # 0.1 10^3/uL (0.0-0.2); BASO % 0.6 % (0.0-1.0); EOS # 0.5 10^3/uL (0.0-0.5); EOS % 5.0 % (0.0-3.0); LYMPH # 1.2 10^3/uL (1.5-5.0); LYMPH % 11.2 % (24.0-44.0); MONO # 0.5 10^3/uL (0.0-0.8); MONO % 4.2 % (2.0-8.0); NEUTROPHILS # 8.5 10^3/uL (1.5-8.5); NEUTROPHILS % 78.7 % (36.0-66.0); PLATELET COUNT, AUTOMATED 305 10^3/uL (150-450)
[2025-06-02] MEDS ORDERED: HOME MED LIST COMPLETE! XX SCH (17:05)
[2025-06-02 19:43] LABS: ALT/SGPT < 9 U/L (7.0-40); AST/SGOT 21 U/L (<34); CALCIUM LEVEL 8.8 MG/DL (8.3-10.6); CARBON DIOXIDE LEVEL 32 MMOL/L (20-31); CHLORIDE LEVEL 102 MMOL/L (98-107); CK-MB VALUE MASS 1.3 NG/ML (<3.6); CREATININE FOR GFR 1.02 MG/DL (0.55-1.30); GLOMERULAR FILTRATION RATE 58.5 (>39); POTASSIUM SERUM 4.9 MMOL/L (3.5-5.1); SODIUM LEVEL 143 MMOL/L (136-145)
[2025-06-02 19:44] LABS: THYROXINE (T4) 8.4 UG/DL (4.5-10.9)
[2025-06-02 19:52] LABS: CPK CREATINE PHOSPHOKINASE 36 U/L (34-145); MB/CK RELATIVE INDEX 3.61 (< OR =4)
[2025-06-02] MEDS ORDERED: ISOVUE-370 76% 100 ML VIAL As Ordered ONE (19:55)
[2025-06-02 21:18] VITALS: BP 134/72; TEMP 96.5; O2SAT 98
== END 2025-06-02 21:32 | disposition home or self-care (01) ==
LOC: M ED 15:21
DX: R06.02 Shortness of breath (principal); I10 Essential (primary) hypertension; J45.909 Unspecified asthma, uncomplicated; F41.9 Anxiety disorder, unspecified; F32.9 Major depressive disorder, single episode, unspecified; Z86.73 Personal history of transient ischemic attack (TIA), and cerebral infarction without residual deficits; Z79.01 Long term (current) use of anticoagulants; Z98.61 Coronary angioplasty status; Z79.899 Other long term (current) drug therapy
CPT/HCPCS: 36415; 71045; 71275; 80048; 80076; 82550; 82553; 83880; 84436; 84443; 84484; 85025; 87040; 87077; 87154; 87486; 87581; 87633; 87798; 93005; 93041; 94760; 99285; Q9967

== ENCOUNTER 2025-06-25 23:43 | Emergency (ER) | payer MEDICARE ==
[~2025-06-25] VITALS: Ht 170.2 cm; Wt 85.9 kg
[~2025-06-25 23:43] MED LIST changes: +BUDE10.7; +RA M10TA PO; +RA N1TAB PO
[2025-06-26] MEDS: NS (Normal Saline) 0.9% 1,000 ML IV ONE (00:25)
[2025-06-26 00:31] LABS: VENOUS BASE EXCESS -4.2 (-2.0-2.0); VENOUS HCO3 21.4 MMOL/L (23.0-27.0); VENOUS O2 SATURATION 78.2 % (60.0-80.0); VENOUS PARTIAL PRESSURE CO2 41.2 mmHg (38.0-50.0); VENOUS PARTIAL PRESSURE O2 45.9 mmHg (30.0-50.0); VENOUS PH 7.334 UNITS (7.330-7.430); VENOUS STANDARD HCO3 20.6 MMOL/L; VENOUS TOTAL CO2 22.7 MMOL/L (24.0-28.0)
[2025-06-26] MEDS ORDERED: ISOVUE-370 76% 100 ML VIAL As Ordered ONE (00:31)
[2025-06-26 00:46] LABS: BASO # 0.1 10^3/uL (0.0-0.2); BASO % 0.6 % (0.0-1.0); EOS # 0.8 10^3/uL (0.0-0.5); EOS % 4.8 % (0.0-3.0); LYMPH # 2.3 10^3/uL (1.5-5.0); LYMPH % 13.5 % (24.0-44.0); MONO # 0.8 10^3/uL (0.0-0.8); MONO % 4.9 % (2.0-8.0); NEUTROPHILS # 12.9 10^3/uL (1.5-8.5); NEUTROPHILS % 75.8 % (36.0-66.0); PLATELET COUNT, AUTOMATED 291 10^3/uL (150-450)
[2025-06-26 03:17] VITALS: BP 106/55
[2025-06-26] MEDS: METOPROLOL TART 25 MG TABLET PO ONE (03:17)
[2025-06-26 03:29] LABS: ALT/SGPT 17.0 U/L (7.0-40); AST/SGOT 41.0 U/L (<34); CALCIUM LEVEL 8.0 MG/DL (8.3-10.6); CARBON DIOXIDE LEVEL 22.0 MMOL/L (20-31); CHLORIDE LEVEL 106.0 MMOL/L (98-107); CK-MB VALUE MASS 1.7 NG/ML (<3.6); CREATININE FOR GFR 0.87 MG/DL (0.55-1.30); GLOMERULAR FILTRATION RATE 70.7 (>39); POTASSIUM SERUM 4.8 MMOL/L (3.5-5.1); SODIUM LEVEL 142.0 MMOL/L (136-145)
[2025-06-26 03:45] LABS: CK-MB VALUE MASS 2.2 NG/ML (<3.6)
[2025-06-26 03:59] LABS: CPK CREATINE PHOSPHOKINASE 40.0 U/L (34-145); MB/CK RELATIVE INDEX 5.5 (< OR =4)
[2025-06-26 04:00] LABS: CPK CREATINE PHOSPHOKINASE 43.0 U/L (34-145); MB/CK RELATIVE INDEX 3.95 (< OR =4)
[2025-06-26 05:05] LABS: CK-MB VALUE MASS 3.1 NG/ML (<3.6)
[2025-06-26 05:09] LABS: CPK CREATINE PHOSPHOKINASE 37.0 U/L (34-145); MB/CK RELATIVE INDEX 8.37 (< OR =4)
[2025-06-26] MEDS ORDERED: ONDA-282 PO (05:35)
[2025-06-26] MEDS: DIGOXIN INJ 0.5 MG/2 ML AMP IV ONE (05:58)
[2025-06-26 06:00] VITALS: BP 120/58; TEMP 97.3; O2SAT 99
== END 2025-06-26 06:10 | disposition home or self-care (01) ==
LOC: M ED 23:43
DX: I48.91 Unspecified atrial fibrillation (principal); R79.89 Other specified abnormal findings of blood chemistry; A09 Infectious gastroenteritis and colitis, unspecified; I50.9 Heart failure, unspecified; J44.9 Chronic obstructive pulmonary disease, unspecified; Z86.73 Personal history of transient ischemic attack (TIA), and cerebral infarction without residual deficits; K21.9 Gastro-esophageal reflux disease without esophagitis; Z99.81 Dependence on supplemental oxygen; Z79.01 Long term (current) use of anticoagulants; Z79.899 Other long term (current) drug therapy
CPT/HCPCS: 71045; 71275; 80047; 80048; 80076; 80162; 82550; 82553; 82803; 83605; 83880; 84145; 84484; 85025; 87486; 87581; 87633; 87798; 93005; 93041; 94760; 96361; 96374; 99285; J1160; Q9967

== ENCOUNTER 2025-07-04 15:05 | Emergency (ER) | payer MEDICARE ==
[~2025-07-04 15:05] MED LIST changes: -ENTR1TAB
[2025-07-04] MEDS ORDERED: ENTR1TAB (15:18)
[2025-07-04 19:49] VITALS: BP 132/59; TEMP 97.5; O2SAT 99
== END 2025-07-04 19:50 | disposition home or self-care (01) ==
LOC: M ED 15:05
DX: N39.0 Urinary tract infection, site not specified (principal); I10 Essential (primary) hypertension; J45.909 Unspecified asthma, uncomplicated; F41.9 Anxiety disorder, unspecified; I48.0 Paroxysmal atrial fibrillation; R30.0 Dysuria; Z86.79 Personal history of other diseases of the circulatory system; Z86.16 Personal history of COVID-19; Z79.01 Long term (current) use of anticoagulants; Z79.02 Long term (current) use of antithrombotics/antiplatelets; Z79.2 Long term (current) use of antibiotics
CPT/HCPCS: 36415; 81001; 83605; 85025; 87040; 87086; 93005; 99283; G0463

== ENCOUNTER → 2025-07-04 | Outpatient (REF) | payer MEDICARE ==
[~2025-07-04] MED LIST changes: +ENTR1TAB; +ONDA-282 PO
[2025-07-04 13:53] LABS: APPEARANCE, URINE HAZY (CLEAR); BACTERIA, URINE AUTO 1+ (NEGATIVE); BILIRUBIN, URINE AUTO NEGATIVE (NEGATIVE); BLOOD, URINE BLOOD 1+ (NEGATIVE); GLUCOSE, URINE (UA) AUTO NEGATIVE (NEGATIVE); KETONE, URINE AUTO NEGATIVE (NEGATIVE); LEUKOCYTE ESTERASE, URINE AUTO TRACE (NEGATIVE); MUCUS, URINE SMALL (NEGATIVE); NITRITE, URINE AUTO NEGATIVE (NEGATIVE); PROTEIN, URINE AUTO 1+ mg/dL (NEGATIVE); RBC, URINE AUTO 1 /HPF (0-3); SPECIFIC GRAVITY URINE AUTO 1.021 (1.002-1.035); SQUAMOUS EPITHELIAL CELL UR AU 17 /HPF (0-6); UROBILINOGEN, URINE AUTO 4.0 mg/dL (0.0-2.0); WBC, URINE AUTO 10 /HPF (0-3)
== END ==
LOC: M SFHCPLAZ 09:44
PROVIDERS: ATTEND Family Medicine
DX: R30.0 Dysuria (principal)

== ENCOUNTER → 2025-07-04 | Outpatient (CLI) | payer MEDICARE ==
[2025-07-04 13:24] LABS: BASO # 0.1 10^3/uL (0.0-0.2); BASO % 0.9 % (0.0-1.0); EOS # 0.7 10^3/uL (0.0-0.5); EOS % 9.6 % (0.0-3.0); LYMPH # 1.8 10^3/uL (1.5-5.0); LYMPH % 26.8 % (24.0-44.0); MONO # 0.3 10^3/uL (0.0-0.8); MONO % 5.0 % (2.0-8.0); NEUTROPHILS # 3.9 10^3/uL (1.5-8.5); NEUTROPHILS % 57.6 % (36.0-66.0); PLATELET COUNT, AUTOMATED 271 10^3/uL (150-450)
== END ==
LOC: M LAB 12:49
PROVIDERS: ATTEND Family Medicine
DX: R30.0 Dysuria (principal)

== ENCOUNTER → 2025-08-09 | Outpatient (REF) | payer MEDICARE ==
[~2025-08-09] MED LIST changes: +ENTR1TAB
== END ==
LOC: M SFHCLERA 17:25
PROVIDERS: ATTEND Family Medicine
DX: N39.0 Urinary tract infection, site not specified (principal)

== ENCOUNTER → 2025-10-06 | Outpatient (REF) | payer MEDICARE ==
[~2025-10-06] MED LIST changes: +MELA10TA30 PO; -RA M10TA PO
== END ==
LOC: M SFHCPLAZ 10:28
PROVIDERS: ATTEND Family Medicine
DX: Z53.9 Procedure and treatment not carried out, unspecified reason (principal)

== ENCOUNTER → 2025-10-09 | Outpatient (REF) | payer MEDICARE | LOC: M LAB REF 12:48 | PROVIDERS: ATTEND Internal Medicine Pulmonary Disease | DX: J44.9 Chronic obstructive pulmonary disease, unspecified (principal) ==

== ENCOUNTER → 2025-10-24 | Outpatient (CLI) | payer MEDICARE ==
[2025-10-24 14:18] LABS: PLATELET COUNT, AUTOMATED 338 10^3/uL (150-450)
[2025-10-24 14:43] LABS: ALT/SGPT 14.0 U/L (7.0-40); AST/SGOT 20.0 U/L (<34); CALCIUM LEVEL 8.5 MG/DL (8.3-10.6); CARBON DIOXIDE LEVEL 28.0 MMOL/L (20-31); CHLORIDE LEVEL 107.0 MMOL/L (98-107); CHOLESTEROL LEVEL 157.0 MG/DL (<200); CHOLESTEROL RISK RATIO 2.98 (<5); CREATININE FOR GFR 1.01 MG/DL (0.55-1.30); GLOMERULAR FILTRATION RATE 59.2 (>39); LDL CHOLESTEROL 74.2 MG/DL (<100); NON-HDL-C 104.4 MG/DL; POTASSIUM SERUM 4.6 MMOL/L (3.5-5.1); SODIUM LEVEL 145.0 MMOL/L (136-145); TRIGLYCERIDES LEVEL 151.0 MG/DL (<150)
[2025-10-24 14:49] LABS: FREE T4 1.28 NG/DL (0.89-1.76)
== END ==
LOC: M PLALAB 10:01
PROVIDERS: ATTEND Family Medicine
DX: I50.20 Unspecified systolic (congestive) heart failure (principal)

== ENCOUNTER → 2025-10-31 | Outpatient (CLI) | payer MEDICARE ==
[2025-10-31 15:46] LABS: BASO # 0.1 10^3/uL (0.0-0.2); BASO % 0.3 % (0.0-1.0); EOS # 0.1 10^3/uL (0.0-0.5); EOS % 0.4 % (0.0-3.0); LYMPH # 1.7 10^3/uL (1.5-5.0); LYMPH % 10.1 % (24.0-44.0); MONO # 0.5 10^3/uL (0.0-0.8); MONO % 2.9 % (2.0-8.0); NEUTROPHILS # 14.1 10^3/uL (1.5-8.5); NEUTROPHILS % 85.9 % (36.0-66.0); PLATELET COUNT, AUTOMATED 270 10^3/uL (150-450)
== END ==
LOC: M PLALAB 12:43
PROVIDERS: ATTEND Family Medicine
DX: D72.829 Elevated white blood cell count, unspecified (principal)

== ENCOUNTER → 2025-11-01 | Outpatient (REF) | payer MEDICARE | LOC: M SFHCPLAZ 14:48 | PROVIDERS: ATTEND Family Medicine | DX: D72.829 Elevated white blood cell count, unspecified (principal) ==